=== PATIENT | male | born 1960 | race Caucasian/White ===

== ENCOUNTER 2019-07-21 08:43 | Emergency (ER) | payer SELFPAY ==
[~2019-07-21] VITALS: Ht 175.3 cm; Wt 85.0 kg
[2019-07-21] MEDS ORDERED: METF-815 PO (08:49)
[2019-07-21] MEDS ORDERED: CEPHALEXIN 250MG CAPSULE PO ONE (12:00)
[2019-07-21] MEDS ORDERED: SULFAMETHOXAZOLE/TRIMETHOPRIM 800/160MG TABLET PO ONE (12:00)
[2019-07-21 12:58] LABS: BASOPHILS % 0.5 % (0.0-2.0); EOSINOPHILS % 1.6 % (0.0-5.0); HEMATOCRIT. 38.4 % (42.0-52.0); HEMOGLOBIN. 12.6 g/dL (14.0-18.0); LYMPHOCYTES % 12.7 % (20.0-50.0); MEAN CORPUSCULAR HEMOGLOBIN 28.7 pg (28.0-32.0); MEAN CORPUSCULAR VOLUME 87.4 fL (80.0-94.0); MEAN PLATELET VOLUME 7.2 fl (7.4-10.4); MONOCYTES % 14.1 % (2.0-8.0); NEUTROPHILS % 71.1 % (40.0-76.0); PLATELET 350 x1000/uL (130-400); RED BLOOD CELL COUNT 4.39 mill/uL (4.7-6.1); RED CELL DISTRIBUTION WIDTH 14.9 % (11.6-14.6)
[2019-07-21 13:06] LABS: CHLORIDE 98 mEq/L (98-107)
[2019-07-21 14:19] VITALS: BP 128/74
[2019-07-21] MEDS ORDERED: CEPHALEXIN 250MG CAPSULE PO SCH (17:00)
[2019-07-21] MEDS ORDERED: SULFAMETHOXAZOLE/TRIMETHOPRIM 800/160MG TABLET PO SCH (17:00)
== END 2019-07-21 16:44 | disposition home or self-care (01) ==
LOC: ER 08:58
DX: R07.9 Chest pain, unspecified (principal); L97.929 Non-pressure chronic ulcer of unspecified part of left lower leg with unspecified severity; E11.9 Type 2 diabetes mellitus without complications; I10 Essential (primary) hypertension; F17.210 Nicotine dependence, cigarettes, uncomplicated; Z88.5 Allergy status to narcotic agent; Z79.84 Long term (current) use of oral hypoglycemic drugs
CPT/HCPCS: 36415; 71045; 80053; 83880; 84484; 85025; 93005; 99284; 99406